=== PATIENT | male | born 1995 | race Caucasian/White ===

== ENCOUNTER 2021-07-17 19:03 | Emergency (ER) | payer OTHER ==
[~2021-07-17] VITALS: Ht 182.9 cm; Wt 113.4 kg
== END 2021-07-17 23:26 | disposition home or self-care (01) ==
LOC: ER 19:03
DX: R51.9 Headache, unspecified (principal); K52.89 Other specified noninfective gastroenteritis and colitis

== ENCOUNTER 2025-01-26 18:41 | Emergency (ER) | payer OTHER ==
[~2025-01-26] VITALS: Ht 182.9 cm; Wt 106.6 kg
[2025-01-26 19:04] VITALS: BP 114/75; O2SAT 98
[2025-01-26 20:01] LABS: BASO % 0.3 % (0.1-1.2); EOS # 0.07 (0.04-0.54); EOS % 1.2 % (0.7-7.0); HEMOGLOBIN 14.8 g/dL (13.7-17.5); LYMPH # 1.49 (1.18-3.74); LYMPH % 25.5 % (19.3-53.1); MONO # 0.48 (0.24-0.82); MONO % 8.2 % (4.7-12.5); NEUT # 3.78 (1.56-6.13); NEUT % 64.6 % (34.0-71.1); PLATELET COUNT 233 K/uL (163-369); RED CELL DISTRIBUTION WIDTH 12.8 % (11.6-14.4)
[2025-01-26 20:23] LABS: INR 0.98; PROTHROMBIN TIME 10.7 SECONDS (9.0-11.5)
[2025-01-26 20:30] LABS: BILIRUBIN TOTAL 0.32 mg/dL (0.3-1.2); CALCIUM 9.2 mg/dL (8.5-10.1); CREATININE SERUM 1.25 mg/dL (0.70-1.30); GFR 69.28; GLOBULINA 3.2 G/DL (2.4-3.5); POTASSIUM 4.42 mEq/L (3.5-5.1); TOTAL PROTEIN 7.2 gm/dL (6.4-8.2)
[2025-01-26 20:39] LABS: URINE APPEARANCE Clear; URINE BILIRRUBIN Negative (NEGATIVE); URINE BLOOD Negative; URINE COLOR Yellow; URINE GLUCOSE Negative (NEGATIVE); URINE KETONE Trace (NEGATIVE); URINE LEUKOCYTE Negative; URINE NITRATE Negative; URINE PROTEIN Negative (NEGATIVE); URINE UROBILINOGEN 0.2 E.U./dl
[2025-01-26 20:40] LABS: URINE BACTERIA 4.8 uL (0.0-1933); URINE EPITHELIAL CELLS 5.5 uL (0.0-38.8); URINE WBC 5.8 uL (0.0-23.2)
[2025-01-26 20:43] LABS: URINE CAST 0.29 uL (0.0-1.40); URINE RBC 0.8 uL (0.0-20.8)
[2025-01-26 20:44] LABS: COVID-19 AG NEGATIVE (NEGATIVE)
[2025-01-26 20:48] LABS: INFLUENZA A AG NEGATIVE (NEGATIVE); INFLUENZA B AG NEGATIVE (NEGATIVE)
[2025-01-26 20:48] LABS: COCAINE NEGATIVE (NEGATIVE); METHADONE NEGATIVE (NEGATIVE); OPIATES NEGATIVE (NEGATIVE); THC ( Cannabinoids) NEGATIVE (NEGATIVE)
[2025-01-26] MEDS ORDERED: BUTALBIT-ACETA1 EACH PO (21:34)
== END 2025-01-26 21:45 | disposition home or self-care (01) ==
LOC: ER 18:53
PROVIDERS: General Practice
DX: R51.9 Headache, unspecified (principal); Z20.822 Contact with and (suspected) exposure to COVID-19
CPT/HCPCS: 36415; 70460; 71045; Q9965

== ENCOUNTER 2025-04-29 03:34 | Emergency (ER) | payer OTHER ==
[~2025-04-29] VITALS: Ht 182.9 cm; Wt 98.4 kg
[~2025-04-29 03:34] MED LIST: BUTALBIT-ACETA1 EACH PO
[2025-04-29] MEDS ORDERED: MINERAL OIL 30 ML BLIST.PACK PO STA (04:52)
[2025-04-29] MEDS ORDERED: MAGNESIUM HYDROXIDE 400 MG/5 ML ML PO STA (04:53)
[2025-04-29] MEDS ORDERED: LACTULOSE 20 G/30 ML BLIST.PACK PO STA (04:53)
[2025-04-29] MEDS ORDERED: HYOSCYAMINE SULFATE 0.125 MG TAB.SUBL SL ONE (05:00)
[2025-04-29 05:10] LABS: BASO % 0.3 % (0.1-1.2); EOS # 0.03 (0.04-0.54); EOS % 0.4 % (0.7-7.0); LYMPH # 1.46 (1.18-3.74); LYMPH % 18.6 % (19.3-53.1); MEAN PLATELET VOLUME 9.50 fl (9.4-12.4); MONO # 0.57 (0.24-0.82); MONO % 7.3 % (4.7-12.5); NEUT # 5.73 (1.56-6.13); NEUT % 73.1 % (34.0-71.1); RED CELL DISTRIBUTION WIDTH 13.2 % (11.6-14.4)
[2025-04-29 06:32] LABS: ALT/SGPT 18.0 U/L (12-78); AST/SGOT 12.0 U/L (15-37); BILIRUBIN TOTAL 0.69 mg/dL (0.3-1.2); BUN CREA RATIO 9.0 (7.0-25.0); CREATININE SERUM 1.1 mg/dL (0.70-1.30); GFR 80.3; GLOBULINA 3.7 G/DL (2.4-3.5); GLUCOSE FASTING 84.0 mg/dL (65-100); OSMOLALITY SERUM 281.0 MOSM/KG (275-295)
== END 2025-04-29 06:58 | disposition home or self-care (01) ==
LOC: ER 03:34
DX: T50.905A Adverse effect of unspecified drugs, medicaments and biological substances, initial encounter (principal); Y92.89 Other specified places as the place of occurrence of the external cause; K59.01 Slow transit constipation

== ENCOUNTER 2025-06-30 04:16 | Emergency (ER) | payer OTHER ==
[~2025-06-30] VITALS: Ht 182.9 cm; Wt 102.1 kg
[2025-06-30] MEDS ORDERED: KETOROLAC TROMETHAMINE 30 MG VIAL IV STA (05:44)
[2025-06-30] MEDS ORDERED: CEFTRIAXONE SODIUM 1,000 MG VIAL IV STA (05:44)
[2025-06-30] MEDS ORDERED: KETOROLAC TROMETHAMINE 30 MG VIAL ONE (06:16)
[2025-06-30] MEDS ORDERED: CEFTRIAXONE SODIUM 1,000 MG VIAL ONE (06:16)
[2025-06-30 08:00] LABS: BASO % 0.2 % (0.1-1.2); EOS # 0.06 (0.04-0.54); EOS % 0.7 % (0.7-7.0); LYMPH # 1.09 (1.18-3.74); LYMPH % 12.0 % (19.3-53.1); MEAN PLATELET VOLUME 9.70 fl (9.4-12.4); MONO # 0.82 (0.24-0.82); MONO % 9.1 % (4.7-12.5); NEUT # 7.05 (1.56-6.13); NEUT % 77.8 % (34.0-71.1); RED CELL DISTRIBUTION WIDTH 12.6 % (11.6-14.4)
[2025-06-30 08:33] LABS: BUN CREA RATIO 16.0 (7.0-25.0); CREATININE SERUM 1.14 mg/dL (0.70-1.30); GFR 76.49; GLUCOSE FASTING 91.0 mg/dL (65-100); OSMOLALITY SERUM 283.0 MOSM/KG (275-295)
[2025-06-30] MEDS ORDERED: METRONIDAZOLE500 MG PO (08:46)
[2025-06-30] MEDS ORDERED: CIPRO500 MG PO (08:46)
[2025-06-30] MEDS ORDERED: KETO10TA2 PO (08:49)
== END 2025-06-30 13:57 ==
LOC: ER 04:17
PROVIDERS: General Practice
DX: L02.419 Cutaneous abscess of limb, unspecified (principal)